=== PATIENT | male | born 1970 | race African-American/Black ===

== ENCOUNTER 2016-06-19 02:22 | Inpatient (IN) | payer OTHER ==
--- NOTE | ~2016-06-19 | HP ---
Unit #: [id number] #: [id number] Patient: OTONIEL GAVIRIA [id number] [facility] [address] [place] [address] [id number] I MR#: [id number] NAME: OTONIEL GAVIRIA ROOM: [facility] Age: 46 Sex: M Admission Date: 06/19/2016 : 1970 Attending Physician: Elbert Humphrey M.D. Admitting Physician: Elbert Humphrey M.D. Primary Care Physician: Primary Care Physician No HISTORY AND PHYSICAL HISTORY OF PRESENT ILLNESS Otoniel is a 46 year old, admitted to [address] [place] [address] with depression. PAST MEDICAL HISTORY Nothing significant. PAST SURGICAL HISTORY Nothing reported. ALLERGIES No known drug allergies. SOCIAL HISTORY He smokes one pack per day. Denies alcohol and illicit drug use. FAMILY HISTORY Medically noncontributory. REVIEW OF SYSTEMS He refuses to answer any questions. CURRENT MEDICATIONS 1. Trazodone 150 mg q.h.s. 2. Risperdal 2 mg b.i.d. 3. Cogentin 1 mg b.i.d. 4. Milk of magnesia p.r.n. 5. Maalox p.r.n. 6. Tylenol p.r.n. PHYSICAL EXAMINATION GENERAL: Alert, well-nourished, no apparent distress. VITAL SIGNS: Blood pressure 105/50, heart rate 60, respirations 16, and temperature 98.6. WEIGHT: 180 pounds. HEIGHT: 6 feet 3 inches. SKIN: Patient refuses. HEENT: Patient refuses. NECK: Patient refuses. HEART: Regular rate and rhythm. LUNGS: Patient refuses. ABDOMEN: Patient refuses. : Not done. EXTREMITIES: Moves all extremities without focal deficit. Hand steel fixer is Unit #: [id number] #: [id number] Patient: OTONIEL GAVIRIA equal and gait is normal. NEUROLOGICAL: Patient refuses. IMPRESSION Psychiatric admission. RECOMMENDATIONS Psychiatric, per psychiatrist. MEDICAL I see no contraindications to participating in facility's activities. MEDICAL PROGNOSIS Good. MEDICAL CONDITION Stable. Dictated by... Saad Zaman P.A.-C. for [place] La/katharina TD: 06/20/2016 12:06 JOB #: [id number] HISTORY AND PHYSICAL Page 1 of 1 X Sada Zaman HISTORY AND PHYSICAL
--- NOTE | ~2016-06-19 | PA ---
Unit #: [id number] #: [id number] Patient: OTONIEL GAVIRIA [id number] [facility] [address] [place] [address] [id number] I MR#: [id number] NAME: OTONIEL GAVIRIA ROOM: 15 Age: 46 Sex: M Admission Date: 06/19/2016 : 1970 Date of Assessment: 06/19/2016 Attending Physician: Elbert Humphrey M.D. Admitting Physician: Elbert Humphrey M.D. Primary Care Physician: Primary Care Physician No PSYCHIATRIC ASSESSMENT INFORMANTS The patient reliability, poor informant and chart reliability, good. CHIEF COMPLAINT None from the patient, but paranoia and aggression. HISTORY OF PRESENT ILLNESS Mr. Otoniel Gaviria is a 46-year-old male, seen on . The patient seemed somewhat guarded, paranoid, confused, and unable to give any reliable information. The patient was irritable, mad, and angry and reported to the intake staff that "I have been for 2 years. I took her multiple places including [place]. I'm used to have encounters with police because I'm 6 feet 3 inches, police came to me and got all nervous." The patient has poor insight, poor judgment, and poor reality testing. Thoughts disorganized, guarded, and paranoid. The patient did not mention any suicidal or homicidal ideation, but disorganized thought process and very extremely paranoid. Currently, disabled and . The patient presented with the above-mentioned symptoms and psychosis at [facility]. The patient was experiencing auditory and visual hallucination, refusing to disclose any information, paranoid, agitated, and refused to answer any questions. The patient has poor hygiene, poor grooming, and poor sleep. Needing inpatient admission at this time for psychiatric stabilization. PAST PSYCHIATRIC HISTORY Remarkable for history of previous treatment from the [facility], details unknown at this time. FAMILY HISTORY AND SOCIAL HISTORY The patient is . Details of family history are unknown at this time. No known history of any abuse or any legal charges known at this time. MEDICAL HISTORY Unremarkable for any chronic medical illness. Musculoskeletal; muscle strength, no atrophy or abnormal movement. Gait normal. MEDICATION HISTORY None. ALLERGIES No known drug allergies. Unit #: [id number] #: [id number] Patient: OTONIEL GAVIRIA SUBSTANCE ABUSE HISTORY None known at this time. REVIEW OF SYSTEMS HEENT: Eyes, clear. Ears, nose, mouth, and throat; clear. CARDIOVASCULAR: Unremarkable. RESPIRATORY: Unremarkable. GI: Unremarkable. : Unremarkable. SKIN: Unremarkable. LYMPH NODE: Unremarkable. NEUROLOGIC: Unremarkable. ENDOCRINE: Unremarkable. HEMATOLOGIC: Unremarkable. ALLERGIC/IMMUNOLOGIC: Unremarkable. MUSCULOSKELETAL: Muscle strength and tone, no atrophy or abnormal movement. Gait normal. MENTAL STATUS EXAMINATION CONSTITUTIONAL: Measurement of vital signs; temperature 97.8, heart rate 61, respiratory rate 16, and blood pressure 105/50. Height 6 feet 3 inches and weight 180 pounds. GENERAL APPEARANCE: The patient dressed casually. Hygiene and grooming poor. No facial deformity noted. MUSCULOSKELETAL: Please see above. PSYCHIATRIC EXAMINATION Description of speech, poor output and disorganized. Description of thought process, disorganized. Description of association; guarded, paranoid, attending to internal stimuli, agitation, mood lability, and irritability. Description of the patient's judgment: Concerning everyday activity, poor. Social situation, poor. Concerning psychiatric condition, poor. Complete mental examination; oriented in self. Recent and remote memory, poor. Attention span and concentration, poor. Language, fair. Fund of knowledge, impaired. Vocabulary, impaired. Mood and affect, labile. Insight and judgment, impaired. ASSETS AND LIABILITIES Assets, the patient is articulate and able to take care of his ADL. Liability, history of psychosis. ADMITTING DIAGNOSES Psychiatric: Psychosis, not otherwise specified, F29.0; rule out substance abuse disorder; rule out schizophrenia; and rule out bipolar mood disorder. Secondary diagnosis: Deferred. Medical diagnosis: None. Stressors: Psychosocial stressors. PSYCHIATRIC PLAN AND TREATMENT GOAL AND DISCHARGE PLAN 1. Advised to admit the patient on the inpatient unit. Provide safe, supportive, and structured environment. 2. Ordered labs; CBC, CMP, UA, and UDS. Unit #: [id number] #: [id number] Patient: OTONIEL GAVIRIA 3. Precaution for psychosis, aggression, and self-harm. 4. The patient to start with Haldol 10 mg b.i.d. for psychosis, Cogentin 1 mg b.i.d. for EPS symptom, Risperdal 3 mg at bedtime, and trazodone 150 mg at bedtime. We will closely monitor. The patient to attend all the programing on the inpatient unit. TREATMENT GOAL To attain euthymic mood, gain insight into his problem, and learn coping skills. DISCHARGE PLAN Plan to stabilize the patient and consider followup in outpatient program. ESTIMATED LENGTH OF STAY 7 to 10 days. Dictated by... Elbert Humphrey M.D. HEMANTH/estefany TD: 06/19/2016 18:07 JOB #: [id number] PSYCHIATRIC ASSESSMENT Page 1 of 1 X Elbert Humphrey MD PSYCHIATRIC ASSESSMENT
--- NOTE | ~2016-06-19 | DS ---
Unit #: [id number] #: [id number] Patient: OTONIEL GAVIRIA [id number] [facility] [address] [place] [address] [id number] I MR#: [id number] NAME: OTONIEL GAVIRIA ROOM: [facility] Age: 46 Sex: M Admission Date: 06/19/2016 : 1970 Discharge Date: 06/20/2016 Attending Physician: Elbert Humphrey M.D. Primary Care Physician: Primary Care Physician No DISCHARGE SUMMARY REASON FOR ADMISSION Psychosis. DIAGNOSTIC STUDIES LABORATORY RESULTS: The patient refused. HOSPITAL COURSE The patient was admitted to inpatient unit on 06/19/2016 and discharged on 06/20/2016. The [facility]. Subsequently, transportation was arranged. [facility]. Subsequently, the patient was discharged with a plan to follow up there. DISCHARGE MEDICATIONS Risperdal 2 mg b.i.d. for psychosis, Cogentin 1 mg b.i.d. for EPS symptom, and Desyrel 150 mg at bedtime for sleep. DISCHARGE DIAGNOSES Psychiatric: Psychosis, not otherwise specified, F29.0; rule out substance abuse disorder; rule out schizophrenia, chronic, paranoid type; rule out bipolar mood disorder. Secondary diagnosis: Deferred. Medical diagnosis: None. Stressors: Psychosocial stressor. DISCHARGE INSTRUCTIONS The patient to follow up at [facility] as per professor of social work. PROGNOSIS Guarded. DIET AND ACTIVITY As tolerated. Dictated by... Elbert Humphrey M.D. SZC/latanyal Unit #: [id number] #: [id number] Patient: OTONIEL GAVIRIA TD: 06/20/2016 16:24 JOB #: [id number] DISCHARGE SUMMARY Page 1 of 1 X Elbert Humphrey MD X DISCHARGE SUMMARY
== END 2016-06-20 16:55 | disposition other institution (70) | DRG 885 ==
LOC: P1S 02:22
DX: F29 Unspecified psychosis not due to a substance or known physiological condition (principal); F20.0 Paranoid schizophrenia; F31.9 Bipolar disorder, unspecified; F17.210 Nicotine dependence, cigarettes, uncomplicated